=== PATIENT | male | born 1995 | race Caucasian/White ===

== ENCOUNTER 2018-05-05 04:56 | Emergency (ER) | payer OTHER ==
[~2018-05-05] VITALS: Ht 180.3 cm; Wt 139.3 kg
[2018-05-05 07:56] VITALS: BP 132/72
== END 2018-05-05 08:24 | disposition home or self-care (01) ==
LOC: ER 04:56
DX: S90.32XA Contusion of left foot, initial encounter (principal); W22.8XXA Striking against or struck by other objects, initial encounter; Y93.89 Activity, other specified; Y99.8 Other external cause status; Y92.89 Other specified places as the place of occurrence of the external cause
CPT/HCPCS: 73630

== ENCOUNTER 2018-07-08 01:12 | Emergency (ER) | payer OTHER ==
[~2018-07-08] VITALS: Ht 180.3 cm; Wt 138.3 kg
[2018-07-08 01:19] VITALS: BP 138/76
[2018-07-08] MEDS ORDERED: HYDROcodone-ACET 5/325MG TAB PO ONE (04:15)
[2018-07-08] MEDS ORDERED: BACLOFEN 10 MG TAB PO ONE (04:15)
== END 2018-07-08 05:00 | disposition home or self-care (01) ==
LOC: ER 01:19
DX: M54.16 Radiculopathy, lumbar region (principal); X50.0XXA Overexertion from strenuous movement or load, initial encounter; X50.9XXA Other and unspecified overexertion or strenuous movements or postures, initial encounter; Y93.89 Activity, other specified; Y92.89 Other specified places as the place of occurrence of the external cause; Y99.8 Other external cause status
CPT/HCPCS: 72100

== ENCOUNTER 2020-11-04 15:58 | Emergency (ER) | payer OTHER ==
[~2020-11-04] VITALS: Ht 180.3 cm; Wt 145.1 kg
[2020-11-04 16:10] VITALS: BP 124/89
== END 2020-11-04 22:37 | disposition left against medical advice (07) ==
LOC: ER 15:58
DX: M54.2 Cervicalgia (principal); Z53.21 Procedure and treatment not carried out due to patient leaving prior to being seen by health care provider
CPT/HCPCS: 70450; 72125

== ENCOUNTER 2021-10-27 06:17 | Emergency (ER) | payer MEDICAID, OTHER ==
[~2021-10-27] VITALS: Ht 180.3 cm; Wt 140.9 kg
[2021-10-27 07:49] LABS: Albumin 3.6 g/dL (3.4-5.0); Bilirubin, Total 0.5 mg/dL (0.2-1.0); Calcium 8.7 mg/dL (8.5-10.1); Hemoglobin 15.2 g/dL (13.5-17.5); Mean Corpuscular Hemoglobin 29.5 pg (28.0-32.0); Mean Corpuscular Hgb Conc. 34.5 g/dL (32.0-36.0); Mean Corpuscular Volume 85.5 fL (80.0-100.0); Potassium 3.6 mmol/L (3.5-5.1); Red Blood Cells 5.14 10^6/uL (4.5-5.90); Red Cell Distribution Width 13.2 % (11.8-14.3); Total Protein 7.2 g/dL (6.4-8.2)
[2021-10-27 07:51] LABS: Band Neutrophils % (manual) 0; Basophils % (manual) 0 (0.0-2.0); Blast Cells 0; Eosinophils % (manual) 0 (0-7); Metamyelocytes % 0; Myelocytes % 0; Promyelocytes % 0; Reactive Lymphocytes 0
[2021-10-27 07:52] LABS: INR 1.01 (0.9-1.15); Partial Thromboplastin Time 31.6 sec (24.6-33.4)
[2021-10-27 08:52] LABS: BUN/Creatinine Ratio 16.9
[2021-10-27] MEDS ORDERED: HYDR2.5C39 TOP (09:16)
[2021-10-27] MEDS ORDERED: METR500T PO (09:16)
[2021-10-27 09:22] VITALS: BP 109/66
[2021-10-27 09:30] LABS: Lymphocytes % (manual) 28 (10.0-50.0); Monocytes % (manual) 4 (0-12)
== END 2021-10-27 09:25 | disposition home or self-care (01) ==
LOC: ER 06:17
DX: K52.9 Noninfective gastroenteritis and colitis, unspecified (principal)
CPT/HCPCS: 36415; 74176; 80053; 83605; 85007; 85027; 85610; 85730; 87040